=== PATIENT | male | born 1960 | race African-American/Black ===

== ENCOUNTER 2019-05-19 09:01 | Inpatient (IN) | payer MEDICARE, MEDICAID ==
[~2019-05-19] VITALS: Ht 170.2 cm; Wt 68.5 kg
[2019-05-19 09:15] VITALS: BP 144/81
--- NOTE | 2019-05-19 09:15 | NUR ---
ED Nurse Note: Patient brought in to ER from [facility] due to chest pain for 1 hour. pt reported it feels stabbing and medial chest. per pt, he has had same chest pain on and off for last 5 months but with this episode, it did not get better even after asa 325mg and nitro 0.4mg sublingual. pt aao x 2-3 and bedridden. calm and cooperative. skin dry and scarly. old fistula sites present on both upper arms. fistula on Rt upper chest currently. Rt foot has vascular wound and picture taken. pt gets dialysis Q T, Th, S but missed today due to chest pain. pt reported he staill urinates but most of time he does not due to dialysis. no pressure ulcer on posterior skin. Rt foot has 2 toes and Lt foot has 4 toes left.
[2019-05-19] MEDS ORDERED: AMMONIUM LACTATE1 ML TOPIC (09:18)
[2019-05-19] MEDS ORDERED: ELIQUIS5 MG PO (09:19)
[2019-05-19] MEDS ORDERED: ATORVASTATIN CA40 MG ORAL (09:19)
[2019-05-19] MEDS ORDERED: RENAGEL800 MG ORAL (09:23)
[2019-05-19] MEDS ORDERED: ZOLOFT100 MG ORAL (09:23)
[2019-05-19] MEDS ORDERED: TRAMADOL HCL50 MG ORAL (09:23)
[2019-05-19] MEDS ORDERED: TYLENOL EXTRA500 MG ORAL (09:24)
--- NOTE | 2019-05-19 09:24 | NUR ---
ED Nurse Note: x-ray at bedside.
[2019-05-19 09:34] LABS: EOSINOPHILS % (AUTO) 3.4 % (0.0-3.0); HEMATOCRIT 34.3 % (42.0-52.0); HEMOGLOBIN 10.5 G/DL (14.2-18.0); LYMPHOCYTES % (AUTO) 18.4 % (20.0-45.0); MEAN CORPUSCULAR VOLUME 107 FL (80-99); MONOCYTES % (AUTO) 6.6 % (1.0-10.0); NEUTROPHILS % (AUTO) 69.5 % (45.0-75.0); PLATELET COUNT 229 K/UL (150-450); RED CELL DISTRIBUTION WIDTH 17.9 % (11.6-14.8); WHITE BLOOD COUNT 5.4 K/UL (4.8-10.8)
--- NOTE | 2019-05-19 09:35 | NUR ---
ED Nurse Note: ERMD at bedside making iv access.
[2019-05-19 09:43] LABS: ANION GAP 14 mmol/L (5-15); BLOOD UREA NITROGEN 55 mg/dL (7-18); CALCIUM 9.4 MG/DL (8.5-10.1); CARBON DIOXIDE 26 MMOL/L (21-32); CHLORIDE 104 MMOL/L (98-107); CREATININE 10.2 MG/DL (0.55-1.30); POTASSIUM 4.9 MMOL/L (3.5-5.1); SODIUM 144 MMOL/L (136-145)
--- NOTE | 2019-05-19 09:44 | NUR ---
ED Nurse Note: pt asked for food and drink. per ERMD pt should stay in NPO for now.
[2019-05-19 09:57] LABS: ALANINE AMINOTRANSFERASE 21 U/L (12-78); ALBUMIN 3.3 G/DL (3.4-5.0); ALBUMIN/GLOBULIN RATIO 0.6 (1.0-2.7); ALKALINE PHOSPHATASE 101 U/L (46-116); ASPARTATE AMINO TRANSFERASE 24 U/L (15-37); BILIRUBIN,TOTAL 0.4 MG/DL (0.2-1.0); CKMB 2.7 NG/ML (0.0-3.6); CREATINE KINASE 80 U/L (26-308)
--- NOTE | 2019-05-19 09:57 | Emergency Room Report ---
History of Present Illness General Chief Complaint: Chest Pain Source: Patient, Medical Record Present Illness HPI 58-year-old male history of hypertension, history of dialysis Saturday, presents with chest pain that started 30 months prior to arrival no aggravating factors, alleviated by aspirin and nitro, severity is mild, there is a discomfort in the chest, patient received aspirin and nitro which alleviated his pain, patient states he is currently chest pain-free, he does endorse some shortness of breath patient presents for evaluation. Allergies: Coded Allergies: No Known Allergies (Unverified , 05/19/19) Patient History Past Medical History: see triage record Reviewed Nursing Documentation: PMH: Agreed; PSxH: Agreed Nursing Documentation-PMH Past Medical History: No History, Except For Hx Diabetes: Yes Hx Dialysis: Yes - ESRD History Of Psychiatric Problem: Yes - Major depression Hx Neurological Problems: Yes - Zoster meningitis, toxic encephalopathy Review of Systems All Other Systems: negative except mentioned in HPI Physical Exam Vital Signs Date Time Temp Pulse Resp B/P (MAP) Pulse Ox O2 Delivery O2 Flow Rate FiO2 05/19/19 09:07 98.2 72 16 105/60 (75) 99 Room Air Sp02 EP Interpretation: reviewed, normal General Appearance: well appearing, no apparent distress, alert Head: normocephalic, atraumatic Eyes: bilateral eye PERRL, bilateral eye EOMI ENT: uvula midline, moist mucus membranes Neck: supple, thyroid normal, supple/symm/no masses Respiratory: lungs clear, no respiratory distress, no retraction, no accessory muscle use Cardiovascular #1: normal peripheral pulses, regular rate, rhythm, no edema, no gallop, no murmur Gastrointestinal: non tender, soft, no guarding, no rebound Musculoskeletal: normal inspection Neurologic: alert, oriented x3 Psychiatric: mood/affect normal Skin: no rash, warm/dry Medical Decision Making Diagnostic Impression: Primary Impression: Chest pain Qualified Codes: R07.9 - Chest pain, unspecified Additional Impression: Missed dialysis ER Course 58-year-old male presents with atypical chest pain, constant, differential diagnosis includes ACS, pneumonia, GERD Patient with 2 troponins negative, EKG no acute changes We will admit patient for dialysis and chest pain evaluation, patient already received aspirin, nitro Patient will be admitted to Dr. Thomas, to be seen by Dr. Rodriguez Laboratory Tests Test 05/19/19 09:15 05/19/19 12:20 White Blood Count 5.4 K/UL (4.8-10.8) Red Blood Count 3.20 M/UL (4.70-6.10) L Hemoglobin 10.5 G/DL (14.2-18.0) L Hematocrit 34.3 % (42.0-52.0) L Mean Corpuscular Volume 107 FL (80-99) H Mean Corpuscular Hemoglobin 32.8 PG (27.0-31.0) H Mean Corpuscular Hemoglobin Concent 30.6 G/DL (32.0-36.0) L Red Cell Distribution Width 17.9 % (11.6-14.8) H Platelet Count 229 K/UL (150-450) Mean Platelet Volume 5.3 FL (6.5-10.1) L Neutrophils (%) (Auto) 69.5 % (45.0-75.0) Lymphocytes (%) (Auto) 18.4 % (20.0-45.0) L Monocytes (%) (Auto) 6.6 % (1.0-10.0) Eosinophils (%) (Auto) 3.4 % (0.0-3.0) H Basophils (%) (Auto) 2.0 % (0.0-2.0) Prothrombin Time 10.9 SEC (9.30-11.50) Prothrombin Time INR 1.0 (0.9-1.1) PTT 25 SEC (23-33) Sodium Level 144 MMOL/L (136-145) Potassium Level 4.9 MMOL/L (3.5-5.1) Chloride Level 104 MMOL/L (98-107) Carbon Dioxide Level 26 MMOL/L (21-32) Anion Gap 14 mmol/L (5-15) Blood Urea Nitrogen 55 mg/dL (7-18) H Creatinine 10.2 MG/DL (0.55-1.30) H Estimate Glomerular Filtration Rate 5.2 mL/min (>60) Glucose Level 101 MG/DL (74-106) Calcium Level 9.4 MG/DL (8.5-10.1) Total Bilirubin 0.4 MG/DL (0.2-1.0) Aspartate Amino Transferase (AST) 24 U/L (15-37) Alanine Aminotransferase (ALT) 21 U/L (12-78) Alkaline Phosphatase 101 U/L (46-116) Total Creatine Kinase 80 U/L (26-308) Creatine Kinase MB 2.7 NG/ML (0.0-3.6) Creatine Kinase MB Relative Index 3.3 Troponin I 0.037 ng/mL (0.000-0.056) 0.003 ng/mL (0.000-0.056) Pro-B-Type Natriuretic Peptide 47671 pg/mL (0-125) H Total Protein 9.1 G/DL (6.4-8.2) H Albumin 3.3 G/DL (3.4-5.0) L Globulin 5.8 g/dL Albumin/Globulin Ratio 0.6 (1.0-2.7) L Lipase 75 U/L (73-393) EKG Diagnostic Results EKG Time: 09:07 EP Interpretation: NSR, rate 83, QTc 44, no acute ST elevations, flipped T waves V5 V6 Rhythm Strip Diag. Results Rhythm Strip Time: 09:56 EP Interpretation: yes Rate: 82 Rhythm: NSR, no PVC's, no ectopy Chest X-Ray Diagnostic Results Chest X-Ray Diagnostic Results : Chest X-Ray Ordered: Yes # of Views/Limited/Complete: 1 View Indication: Chest Pain EP Interpretation: Yes Interpretation: no consolidation, no effusion, no pneumothorax, no acute cardiopulmonary disease Impression: No acute disease Electronically Signed by: Brian Caldwell MD Last Vital Signs Date Time Temp Pulse Resp B/P (MAP) Pulse Ox O2 Delivery O2 Flow Rate FiO2 05/19/19 09:15 72 16 Room Air 05/19/19 09:15 98.2 144/81 99 Disposition: ADMITTED INPATIENT Condition: Stable Referrals: [facility] (PCP) Brian Caldwell MD May 19, 2019 09:57
[2019-05-19] MEDS ORDERED: Lidocaine 1% Plain 30 ml INJ ONE (10:00)
--- NOTE | 2019-05-19 10:19 | Diagnostic Imaging Report ---
Indication: Chest Technique: One view of the chest Comparison: none Findings: There is a right jugular tunneled dialysis catheter in place. Stents are seen in the bilateral axillary veins and in the left subclavian vein. The lungs and pleural spaces are clear. The heart size is upper limits of normal. Impression: No acute process. Findings as noted
--- NOTE | 2019-05-19 10:23 | NUR ---
ED Nurse Note: pt c/o "feeling of sugar getting low" accu check 83mg/dl and ERMD made aware. per ERMD juice is ok for the pt to drink. 2 cups of juice provided.
--- NOTE | 2019-05-19 10:30 | NUR ---
ED Nurse Note: pt not eligible for PICC line due to multiple scar tissue and vein unable to visualize
--- NOTE | 2019-05-19 12:47 | NUR ---
ED Nurse Note: waiting for admitting doctor to call back.
--- NOTE | 2019-05-19 13:24 | NUR ---
ED Nurse Note: Report given to BRYAN Leary
--- NOTE | 2019-05-19 13:35 | NUR ---
ED Nurse Note: Dr. Rodriguez at bedside requesting to see pt while pt is in ER.
[2019-05-19 14:00] VITALS: BP 153/118
--- NOTE | 2019-05-19 14:00 | NUR ---
ED Nurse Note: pt transferred to Tememetry unit with 1 systems protection technician and 1 RN in stable condition.
--- NOTE | 2019-05-19 14:01 | NUR ---
NURSE NOTES: Received patient from BRYAN Foreman. Patient blood pressure 153/118, HR 83, SpO2 97% on room air, HR 83 in normal sinus rhythm, and temp 97.7. Patient alert to name and purpose but confused to place and time. Patient legally blind with cataract noted in right eye. Patient pupils equal and reactive but sluggish. Patient drowsy. Patient on room air. All lung sounds clear. Patient has right forearm 18 gauge peripheral IV saline locked, asymptomatic, and flushed at this time. Patient has scaly are on his upper back and is complaining of shooting pain off and on in that area. No open wound noted. Patient has bilateral upper arm old nonfunctional AV shunt. Patient has right subclavian permicath with non-sterile dressing. Will change dressing when possible. Patient has bilateral heel DTI. Patient has 3 toes amputated from left foot and one toe amputated from right foot. Right plantar foot old/dry wound. All wounds covered with optifoam. Patient bed in low position with bed alarm on and call light in reach at this time. Patient anuric at this time. Addendum: 05/19/19 at 1947 by Vane Headley RN Patient has dental implants.
[2019-05-19] MEDS ORDERED: NORVASC10 MG ORAL (15:23)
[2019-05-19] MEDS ORDERED: SENNA8.6 M2 PO (15:23)
[2019-05-19] MEDS ORDERED: HYDROCORTISONE1.5 GM TP (15:23)
[2019-05-19] MEDS ORDERED: FAMOTIDINE10 MG ORAL (15:23)
[2019-05-19] MEDS ORDERED: FERROUS SULFAT325 MG ORAL (15:23)
[2019-05-19] MEDS ORDERED: INSULIN LI100 UNIT/2 SQ (15:23)
[2019-05-19] MEDS ORDERED: LATANOPROST 0.7.5 ML OP (15:23)
[2019-05-19] MEDS ORDERED: CITRATE OF MAG296 ML PO (15:23)
[2019-05-19] MEDS ORDERED: LACTULOSE20 GM/301 ORAL (15:23)
[2019-05-19] MEDS ORDERED: SEVELAMER HCL800 MG PO (15:23)
[2019-05-19] MEDS ORDERED: ACETAMINOPHEN650 MG ORAL (15:23)
[2019-05-19] MEDS ORDERED: CLONIDINE HCL0.1 MG PO (15:23)
[2019-05-19 16:00] VITALS: BP_SYST 162; BP_SYST 99; BP_DIAS 118; BP_DIAS 99
[2019-05-19] MEDS ORDERED: HYDROcodone/Acetamin 5/325 tab ORAL PRN (16:00)
--- NOTE | 2019-05-19 16:00 | NUR ---
NURSE NOTES: Patient blood pressure 162/99, HR 84, SpO2 97% on room air, HR 84 in normal sinus rhythm, and temp 97.7. Patient remains alert to name and purpose but confused to place and time. Patient remains drowsy. Patient remains on room air. All lung sounds clear. Right forearm 18 gauge peripheral IV saline locked, asymptomatic, and flushed at this time. All wounds covered with optifoam. Patient bed in low position with bed alarm on and call light in reach at this time. Patient anuric at this time. Patient repositioned and oral care performed. Wound care nurse assessed patient. Addendum: 05/19/19 at 1935 by Vane Headley RN Admission orders obtained from Dr Rodriguez. Orders read back, verified, and placed.
[2019-05-19] MEDS ORDERED: LANTUS SOL100 UNIT/1 SUBQ ×2 (16:08)
[2019-05-19] MEDS ORDERED: HUMALOG100 UNIT/3 SUBQ (16:08)
[2019-05-19] MEDS ORDERED: BETADINE30 ML OP (16:09)
[2019-05-19] MEDS ORDERED: COLACE100 MG ORAL (16:13)
[2019-05-19] MEDS ORDERED: traMADol 50mg tab ORAL PRN (16:30)
[2019-05-19] MEDS ORDERED: Magnesium Citrate Liq Btl ORAL PRN (16:30)
[2019-05-19] MEDS ORDERED: Sennosides 8.6mg tab ORAL PRN (16:30)
[2019-05-19] MEDS ORDERED: Lactulose 20gm/30ml UDC ORAL PRN (16:30)
[2019-05-19] MEDS ORDERED: Dextrose 50% 25ml Syringe IV PRN (17:00)
[2019-05-19] MEDS: Eliquis 5mg tablet ORAL SCH (17:46)
[2019-05-19] MEDS ORDERED: Docusate 100mg cap ORAL SCH (18:00)
--- NOTE | 2019-05-19 19:10 | NUR ---
HAND-OFF: Report given to BRYAN Orlando. Patient vital signs stable with no sign of acute distress.
--- NOTE | 2019-05-19 19:40 | NUR ---
NURSE NOTES: Received report from BRYAN Cifuentes. Received PT is sleeping on the bed and drowsy and able to response to verbal stimuli. On Tele monitor with SR. Denied pain at this time. IV site intact and no sign of infiltration. Pt has old shunt on both arms but no bruit and thrills noted. Dressing is clean and dry on wound area. Noted multiple scabs on back area. New order received for hemodialysis. Called to [facility] hemodialysis center for schedule. Pt has Rt. subclavian Perma cath. Placed fall precaution. Will continue to care plan.
[2019-05-19 20:00] VITALS: BP 180/110
[2019-05-19] MEDS ORDERED: Dyna-Hex 2% Top Sol 2oz TOPIC SCH (20:00)
[2019-05-19] MEDS: Dyna-Hex 2% Top Sol 2oz TOPIC SCH (20:03)
[2019-05-19] MEDS: Latanoprost 0.005% Opth 2.5ml Soln BOTH EYES SCH (20:53)
[2019-05-19] MEDS: Atorvastatin 20mg tab ORAL SCH (20:53)
[2019-05-19] MEDS: Levemir Flexpen SUBQ SCH (20:54)
[2019-05-19] MEDS: [UNRECOGNIZED DRUG - OTHER] SUBQ SCH (21:00)
[2019-05-19] MEDS: INSULIN ASPART SUBQ SCH (21:00)
[2019-05-19] MEDS ORDERED: Heparin 5000 units/ml inj SUBQ SCH (21:00)
--- NOTE | 2019-05-19 21:45 | History and Physical Report ---
DATE OF ADMISSION: 05/19/2019 CHIEF COMPLAINT AND REASON FOR HOSPITALIZATION: The patient is a 58-year-old man admitted for chest pain. HISTORY OF PRESENT ILLNESS: The patient has end-stage renal disease, long-standing diabetes, diabetic retinopathy, and prior herpes zoster several months ago on the left side of his chest and he presented now with chest pain to the emergency room. He tells me this is his herpes zoster and his pain is moderately severe. He was seen by the emergency room physician, who felt that he should be admitted for possible acute coronary syndrome in view of his risk factors. The patient has a history of hypertension, diabetes, bed ridden status, gait disorder, amputations of toes, and impaired vision due to diabetic retinopathy. He missed his outpatient dialysis treatment on the day of admission 05/19/2019. ALLERGIES: None known. SURGERIES: Include dialysis access surgery in both arms, current access is dialysis PermCath, right chest, eye surgery for retinal detachment and glaucoma, and amputations of toes on both feet. MEDICATIONS: At the facility include A and D ointment p.r.n., ammonium lactate ointment, apixaban 5 mg b.i.d. for atrial fibrillation, atorvastatin 40 mg daily, clonidine 0.1 mg every 6 hours p.r.n., Colace 100 mg b.i.d., famotidine 10 mg daily, ferrous sulfate 325 daily, hydrocortisone lotion daily, insulin glargine 16 units daily in the morning and 18 units at bedtime, lispro sliding scale, and lactulose 30 mL every 6 hours as needed. He has latanoprost eye drops, magnesium citrate p.r.n., Norvasc 10 mg daily, senna 2 tablets at bedtime, sertraline 100 mg daily, sevelamer 800 mg t.i.d., tramadol 50 mg q.6 hours as needed, and Tylenol p.r.n. There is a note that he had [place] in the past. HABITS: He is a nondrinker and nonsmoker. No use of illicit drugs. SOCIAL HISTORY: He lives in an [facility]. SYSTEM REVIEW: HEENT: He has very poor vision. His best eye is the left eye. Hearing is good. ENDOCRINE: Long-standing diabetes as above. PULMONARY: No asthma, TB, and chronic cough. CARDIAC: Chest pain as above, which is sort of a constant nature. GASTROINTESTINAL: He has had intermittent diarrhea recently. No nausea and vomiting. GENITOURINARY: He makes little urine. NEUROLOGIC: No CVA, but he has diabetic neuropathy and dysesthesias in the legs. MUSCULOSKELETAL: Generalized weakness and he is nonambulatory. PHYSICAL EXAMINATION: GENERAL: The patient is a chronically ill-appearing man seen in the emergency department. VITAL SIGNS: Temperature 98.2, pulse 72, respirations 18, and blood pressure 144/81. HEAD, EYES, EARS, NOSE, AND THROAT: He keeps his eyes closed during most of the exam. His vision is very poor. Ocular motion is intact in all directions. Oral mucosa moist. NECK: No adenopathy. CHEST: Has a right dialysis PermCath. LUNGS: Clear. HEART: Regular rhythm. No murmur. ABDOMEN: Soft without organomegaly or masses. EXTREMITIES: No edema. There is absent pedal pulses. Missing toes on both feet and has some calluses on both feet. NEUROLOGIC: He is alert and responsive. He barely opens his eyes, but ocular motion is intact in all directions. Smile is symmetric. He moves all extremities. He has generalized weakness. SKIN: There is some hyperpigmented skin on the dermatomes of the left upper chest consistent with healed zoster. He also has dry scaly skin generalized. PERTINENT LABORATORY DATA: Show potassium 4.9, BUN 55, creatinine of 10.2, and calcium 9.4. Troponin 0.037 and 0.003. BNP 29,151. White count 5.4 and hemoglobin 10.5. IMPRESSION: 1. Chest pain likely post herpetic neuropathy. 2. Concerned for possible acute coronary syndrome. 3. End-stage renal disease, status post missed dialysis. 4. Diabetes, insulin-dependent with retinopathy, neuropathy, nephropathy, and vasculopathy. 5. Failure to thrive. PLAN: The patient will rule out acute myocardial infarction. We will give him comfort measures and arrange dialysis. Дмитрий Rodriguez M.D. DR: MANUELA JOB#: [id number] CC:
[2019-05-20] VITALS: BP 160/110
[2019-05-20 04:00] VITALS: BP 157/93
[2019-05-20 05:30] LABS: BASOPHILS % (AUTO) 1.8 % (0.0-2.0); EOSINOPHILS % (AUTO) 2.9 % (0.0-3.0); HEMATOCRIT 34.7 % (42.0-52.0); HEMOGLOBIN 10.7 G/DL (14.2-18.0); LYMPHOCYTES % (AUTO) 18.3 % (20.0-45.0); MEAN CORPUSCULAR VOLUME 106 FL (80-99); MONOCYTES % (AUTO) 8.1 % (1.0-10.0); PLATELET COUNT 230 K/UL (150-450); RED BLOOD COUNT 3.27 M/UL (4.70-6.10); RED CELL DISTRIBUTION WIDTH 17.8 % (11.6-14.8); WHITE BLOOD COUNT 5.6 K/UL (4.8-10.8)
[2019-05-20] MEDS: [UNRECOGNIZED DRUG - OTHER] SUBQ SCH ×4 (06:30→20:50)
[2019-05-20] MEDS: INSULIN ASPART SUBQ SCH ×4 (06:30→20:50)
[2019-05-20] MEDS: Levemir Flexpen SUBQ SCH ×2 (06:31→20:50)
--- NOTE | 2019-05-20 07:28 | NUR ---
HAND-OFF: Report given to BRYAN Marsh. PT is resting on the bed and no sign of acute distress noted.
--- NOTE | 2019-05-20 07:29 | NUR ---
NURSE NOTES: Received patient in bed. Awake, on room air, no apparent distress. Denies discomfort. Able to verbalize some needs. Call light within reach. Bed in lowest position, bed alarm on. Denies chest pain at this time. No signs and symptoms of hypoglycemia. Will continue plan of care.
--- NOTE | 2019-05-20 07:55 | NUR ---
NURSE NOTES: Dialysis nurse from [facility] at bedside.
[2019-05-20 08:49] LABS: ANION GAP 17 mmol/L (5-15); BLOOD UREA NITROGEN 65 mg/dL (7-18); CALCIUM 9.4 MG/DL (8.5-10.1); CARBON DIOXIDE 24 MMOL/L (21-32); CHLORIDE 104 MMOL/L (98-107); CREATININE 11.1 MG/DL (0.55-1.30); POTASSIUM 5.2 MMOL/L (3.5-5.1); SODIUM 145 MMOL/L (136-145)
[2019-05-20] MEDS ORDERED: Betadine 4oz Bottle TOPIC SCH ×2 (09:00→21:00)
[2019-05-20] MEDS: Docusate 100mg cap ORAL SCH ×2 (09:00→20:46)
[2019-05-20] MEDS: Sertraline 100mg tab ORAL SCH (09:00)
[2019-05-20] MEDS ORDERED: Lac Hydrin 12% Lotion 8oz TOPIC SCH ×2 (09:00→21:00)
[2019-05-20] MEDS: Eliquis 5mg tablet ORAL SCH ×2 (09:00→17:06)
--- NOTE | 2019-05-20 09:20 | NUR ---
*-* NO INSURANCE INFORMATION IN THE BAR UNABLE TO SEND CLINICALS OR REVIEWS *-*
[2019-05-20 12:00] VITALS: BP 119/60
--- NOTE | 2019-05-20 13:25 | NUR ---
*-* INSURANCE *-* ALL AVAILABLE CLINICALS HAVE BEEN FAXED TO: [facility] No Tracking # ot CM yet #[phone]
--- NOTE | 2019-05-20 15:28 | NUR ---
CASE MANAGEMENT:REVIEW 58 YR OLD MALE BIBA FROM [facility] PMH: DIALYSIS (LAURIE JORDAN TTS T: [phone]) CC: CHEST PAIN AND MISSED DIALYSIS SI: CHEST PAIN 98.2 72 16 105/60 99% ON RA H/H-10.5/34.3 BUN+55 CR+10.2 TROPONIN(-) IS: NTG AND ASA GIVEN TOP INSTALLER PICC LINE CHEST XRAY : TO TELEMETRY DCP: FROM [facility]
[2019-05-20 16:00] VITALS: BP 144/79
--- NOTE | 2019-05-20 16:09 | Cardiology Report ---
APPROVED REPORT EXAM: Two-dimensional and M-mode echocardiogram with Doppler and color Doppler. INDICATION Chest Pain M-Mode DIMENSIONS IVSd1.0 (0.7-1.1cm)Left Atrium (MM)2.3 (1.6-4.0cm) LVDd4.8 (3.5-5.6cm)Aortic Root3.7 (2.0-3.7cm) PWd0.9 (0.7-1.1cm)Aortic Cusp Exc.1.7 (1.5-2.0cm) IVSs1.0 cm LVDs3.4 (2.5-4.0cm) PWs1.0 cm Normal left ventricular chamber size. Global left ventricular hypokinesis . Left ventricular ejection fraction estimated to be 45-50%. No evidence left ventricular hypertrophy. No pericardial effusion. All other cardiac chamber sizes are within normal limits. Aortic valve calcification with normal cusp excursion . Mildly thickened mitral valve leaflets with normal excursion. Mild mitral annulus and aortic root calcification. Pulmonic valve not well visualized. IVC at normal size with physiologic collapse. A color flow and spectral Doppler study was performed and revealed: No aortic insufficiency . Mitral diastolic velocities suggest reduced left ventricular relaxation c/w mild LV diastolic dysfunction (Grade I ) Trace mitral regurgitation. Mild tricuspid regurgitation. Tricuspid systolic velocities suggests peak right ventricular systolic pressure of 16mmHg.
[2019-05-20] MEDS ORDERED: NORCO 5-325 TA1 EACH ORAL (17:11)
--- NOTE | 2019-05-20 17:15 | NUR ---
NURSE NOTES: Dr. Rodriguez at bedside. Informed regarding today's troponin level. With no order obtained at this time.
--- NOTE | 2019-05-20 17:47 | NUR ---
PHP ARCHITECT NOTES RECEIVED DC ORDER, INQUIRY FAXED TO [facility]. SPOKE WITH MIRANDA, PT CAN RETURN TO FACILITY PENDING AUTH FROM INSURANCE. INSURANCE TO CALL NURSING STATION WITH AUTHORIZATION AFTER HOURS. ONCE AUTHORIZATION HAS BEEN RECEIVED PT CAN DC. NURSE MADE AWARE.
--- NOTE | 2019-05-20 19:30 | NUR ---
HAND-OFF: Report given to Emily Shanks RN.
--- NOTE | 2019-05-20 19:31 | NUR ---
NURSE NOTES: received pt from Salma ADAMS., pt is resting on the bed, alert x 3. pt has both AV shunt on bilateral arm. Perma cath on right upper chest, dressing intact, clean and patent. pt states no pain at this moment. no SOB noted, and pt is in RA. O2sat is 98%. call light within reach. will continue monitor pt with plan of care. pt is getting ready to get discharge today.
[2019-05-20] MEDS ORDERED: Heparin Sod 1000 units/ml 10ml IV PRN (19:45)
[2019-05-20 20:00] VITALS: BP 110/74
[2019-05-20] MEDS: Dyna-Hex 2% Top Sol 2oz TOPIC SCH (20:44)
[2019-05-20] MEDS: Atorvastatin 20mg tab ORAL SCH (20:47)
[2019-05-20] MEDS: Latanoprost 0.005% Opth 2.5ml Soln BOTH EYES SCH (21:00)
--- NOTE | 2019-05-20 21:00 | NUR ---
NURSE NOTES: gave report to Orlando ADAMS from [facility].
[2019-05-20] MEDS: HYDROcodone/Acetamin 5/325 tab ORAL PRN (22:00)
[2019-05-21] VITALS: BP 144/69
--- NOTE | 2019-05-21 02:15 | NUR ---
NURSE NOTES: Alfa Camacho Does not want pt if SBP is higher than 160. spoke to Danni ADAMS from SNF. will continue to monitor pt's V/S.
[2019-05-21 04:00] VITALS: BP 161/59
[2019-05-21] MEDS: HYDROcodone/Acetamin 5/325 tab ORAL PRN ×2 (06:02→12:23)
[2019-05-21] MEDS: Levemir Flexpen SUBQ SCH (06:09)
[2019-05-21] MEDS: [UNRECOGNIZED DRUG - OTHER] SUBQ SCH ×2 (06:09→11:30)
[2019-05-21] MEDS: INSULIN ASPART SUBQ SCH ×2 (06:09→11:30)
--- NOTE | 2019-05-21 06:30 | NUR ---
NURSE NOTES: Dr. Thomas aware pt did not dc due to elevated BP
--- NOTE | 2019-05-21 07:22 | NUR ---
NURSE NOTES: Pt received in stable condition with no cardiopulmonary distress noted. Pt is asleep in bed on RA. Skin alterations noted. Urinal at bedside. Right chest permacath noted clamped. Bed in lowest position, alarm on, side rails up x2, call light within reach. Will continue to monitor.
--- NOTE | 2019-05-21 07:22 | NUR ---
HAND-OFF: Report given to Trupti ADAMS. pt is stable condition.
[2019-05-21 08:00] VITALS: BP 159/76
[2019-05-21] MEDS: Sertraline 100mg tab ORAL SCH (08:29)
[2019-05-21] MEDS: Eliquis 5mg tablet ORAL SCH (08:29)
[2019-05-21] MEDS: Docusate 100mg cap ORAL SCH (08:29)
--- NOTE | 2019-05-21 09:39 | NUR ---
CASE MANAGEMENT:REVIEW 05/21/19 SI: CHEST PAIN. POSSIBLE ACS ESRD. DM. FTT 97.8 76 20 159/76 99% ON RA NO LABS FOR TODAY IS: NORVASC PO QD IRON PO QD ZOLOFT PO QD PEPCID PO QD LEVEMIR SQ QAM AND QHS SS INSULIN SQ AC+HS ELIQUIS PO BID CLONIDINE PO Q6HRS PRN : STEP DOWN UNIT DCP: FROM [facility] PLAN: PLAN WAS TO DISCHARGE BACK TO [facility] LAST NIGHT AMBULANCE WAS CALLED AND WHEN THEY ARRIVED BP WAS 183/97 SO THEY WOULD NOT TRANSPORT... NOTIFIED BP HAS IMPROVED MESSAGE LEFT FOR [facility] YULIYAM: LELAND T: [phone]
--- NOTE | 2019-05-21 09:50 | NUR ---
DISCHARGE PLANNING DISCHARGE ORDER NOTED CALLED AND LEFT M MESSAGE FOR [facility] YULIYA: LELAND T: [phone] LELAND WILL ARRANGE AMBULANCE TRANSPORT WITH "[facility]" WAITING FOR RETURN CALL FROM LELAND REGARDING AMBULANCE ETA DISCUSSED WITH CHARGE NURSE ZACHARY
[2019-05-21 12:00] VITALS: BP 126/48
--- NOTE | 2019-05-21 12:01 | NUR ---
NURSE NOTES: Gave report to Gifty Cabrera from [facility] over phone.
--- NOTE | 2019-05-21 12:26 | NUR ---
NURSE NOTES: Pt refused insulin. I informed him that his blood glucose was 236 at this time and indication for insulin, he still refused it however.
--- NOTE | 2019-05-21 13:07 | NUR ---
*-* INSURANCE *-* ALL AVAILABLE CLINICALS HAVE BEEN FAXED TO: [facility] No Tracking # ot CM yet #[phone]
--- NOTE | 2019-05-21 14:31 | Nephrology Progress Note ---
Assessment/Plan Problem List: (1) Troponin level elevated (2) End-stage renal disease (3) Post herpetic neuralgia (4) Chest pain (5) Missed dialysis Plan ecf declined 05/20 but accepts 05/21 stable on HD 05/21, I saw him both days Subjective Constitutional: Reports: no symptoms HEENT: Reports: blurred vision Genitourinary: Reports: incontinence Neurologic/Psychiatric: Reports: no symptoms, pre-existing deficit Objective Objective Last 24 Hour Vital Signs Date Time Temp Pulse Resp B/P (MAP) Pulse Ox O2 Delivery O2 Flow Rate FiO2 05/21/19 12:00 83 05/21/19 12:00 Room Air 05/21/19 12:00 97.5 84 12 126/48 (74) 97 05/21/19 08:29 83 159/76 05/21/19 08:00 98.9 83 20 159/76 (103) 99 05/21/19 08:00 Room Air 05/21/19 07:35 73 05/21/19 04:00 97.8 76 20 161/59 (93) 99 05/21/19 03:34 81 05/21/19 00:00 98.4 80 20 144/69 (94) 100 05/20/19 23:27 76 05/20/19 21:51 183/97 05/20/19 21:00 Room Air 05/20/19 20:00 98.3 83 20 110/74 (86) 98 05/20/19 19:39 82 05/20/19 16:00 99.5 83 20 144/79 (100) 99 05/20/19 15:31 78 Intake and Output 05/20/19 05/21/19 18:59 06:59 Intake Total 240 ml 120 ml Output Total 2120 ml 120 ml Balance -1880 ml 0 ml Intake Oral 240 ml 120 ml Output Urine Total 120 ml 120 ml Hemodialysis UF 2000 ml # Bowel Movements 1 Height (Feet): 5 Height (Inches): 7.00 Weight (Pounds): 151 General Appearance: no apparent distress, alert - Neck: normal alignment Cardiovascular: regular rhythm Respiratory/Chest: lungs clear Abdomen: non tender, soft Neurologic: abnormal activity therapist II-XII, motor weakness Дмитрий Rodriguez MD May 21, 2019 14:31
--- NOTE | 2019-05-21 14:45 | NUR ---
NURSE NOTES: Pt discharged in stable condition via EMT personnel. quality assurance monitor body removed and returned to tele unit. Pt has no belongings. Family informed of discharge over phone.
--- NOTE | 2019-05-22 11:54 | Discharge Summary ---
DATE OF ADMISSION: 05/19/2019 DATE OF DISCHARGE: 05/20/2019 PERTINENT HISTORY: The patient presents to the emergency room for chest pain. He has had herpes zoster and he told me that this is similar to his herpes zoster pain although the acute episode was several months ago. He has diabetes, diabetic retinopathy, vasculopathy, hypertension, and end-stage renal disease, on dialysis. PERTINENT PHYSICAL FINDINGS: See the detailed History and Physical. HEENT: He has poor vision. LUNGS: Clear. HEART: Regular rhythm. No murmur or rub. ABDOMEN: Soft without organomegaly. EXTREMITIES: No edema. He is missing toes on both feet. NEUROLOGIC: He is alert, somewhat sleepy. No focal findings. SKIN: He has hyper pigmented skin in the dermatome on the left upper chest. COURSE IN THE HOSPITAL: Because of his risk factors, he is admitted for possible acute coronary syndrome. His chest pain abated and no specific therapy. He did receive maintenance dialysis in the hospital as he had missed dialysis. His troponins are 0.037, 0.003, and 0.062, were likely nonspecific due to his end-stage renal disease. There were no acute EKG changes. He was discharged from the hospital in stable condition. Echocardiogram . Ejection fraction 45 to 50%. Global left ventricular hypokinesis and diastolic dysfunction. FINAL DIAGNOSES: 1. Chest pain likely due to post herpetic neuralgia. 2. End-stage renal disease, status post missed dialysis. 3. Chronic diastolic congestive heart failure, with abnormal echo as above and likely chronic ischemic cardiomyopathy. 4. Elevation of troponin of uncertain consequence likely due to end-stage renal disease and underlying ischemic cardiomyopathy. 5. Insulin-dependent diabetes with retinopathy, nephropathy, neuropathy, and vasculopathy. DISCHARGE DISPOSITION: To the [facility] on his renal diabetic diet. MEDICATIONS: Per the discharge medication list. FOLLOWUP: Follow up by his primary doctor at the [facility]. Дмитрий Rodriguez M.D. DR: MANUELA JOB#: [id number] CC:
--- NOTE | 2019-05-22 15:44 | NUR ---
*-* INSURANCE *-* DISCHARGE SUMMARY HAVE BEEN FAXED TO: [facility] No Tracking # ot CM yet #[phone]
== END 2019-05-21 14:50 | DRG 73 ==
LOC: EDBD 09:01 → EMR 09:45 → 2W 10:54 → EDBEDREQ 13:05
DX: B02.23 Postherpetic polyneuropathy (principal); N18.6 End stage renal disease; I13.2 Hypertensive heart and chronic kidney disease with heart failure and with stage 5 chronic kidney disease, or end stage renal disease; I50.32 Chronic diastolic (congestive) heart failure; E11.22 Type 2 diabetes mellitus with diabetic chronic kidney disease; Z79.4 Long term (current) use of insulin; R62.7 Adult failure to thrive; E11.319 Type 2 diabetes mellitus with unspecified diabetic retinopathy without macular edema; Z99.2 Dependence on renal dialysis; I25.5 Ischemic cardiomyopathy; E11.40 Type 2 diabetes mellitus with diabetic neuropathy, unspecified; Z91.15 Patient's noncompliance with renal dialysis
CPT/HCPCS: 36415; 36569; 71045; 76937; 80048; 80053; 82550; 82553; 82962; 83690; 83880; 84484; 85025; 85610; 85730; 87081; 93005; 93306; 99285; A4246; J1815; S5561

== ENCOUNTER 2019-05-21 16:53 | Emergency (ER) | payer MEDICARE, MEDICAID ==
[~2019-05-21] VITALS: Ht 185.4 cm; Wt 79.8 kg
[~2019-05-21 16:53] MED LIST: ACETAMINOPHEN650 MG ORAL; AMMONIUM LACTATE1 ML TOPIC; ATORVASTATIN CA40 MG ORAL; BETADINE30 ML OP; CITRATE OF MAG296 ML PO; CLONIDINE HCL0.1 MG PO; COLACE100 MG ORAL; ELIQUIS5 MG PO; FAMOTIDINE10 MG ORAL; FERROUS SULFAT325 MG ORAL; HUMALOG100 UNIT/3 SUBQ; HYDROCORTISONE1.5 GM TP; INSULIN LI100 UNIT/2 SQ; LACTULOSE20 GM/301 ORAL; LANTUS SOL100 UNIT/1 SUBQ; LATANOPROST 0.7.5 ML OP; NORCO 5-325 TA1 EACH ORAL; NORVASC10 MG ORAL; RENAGEL800 MG ORAL; SENNA8.6 M2 PO; SEVELAMER HCL800 MG PO; TRAMADOL HCL50 MG ORAL; TYLENOL EXTRA500 MG ORAL; ZOLOFT100 MG ORAL
[2019-05-21 17:00] VITALS: BP 134/74
--- NOTE | 2019-05-21 17:00 | NUR ---
ED Nurse Note: Patient brought in by ambulance after being discharged from this hospital due to patient being hypertensive at time of arrival to [facility]. EMs states that the patient's systolic blood pressure was in the 180s. at time of arrival patients blood pressure was 134/74. patient did receive dialysis today, has a shunt located on right upper chest. patient is alert and oriented x4, placed on a monitoring and evaluation advisor, will continue to monitor
--- NOTE | 2019-05-21 17:08 | Emergency Room Report ---
History of Present Illness General Chief Complaint: Hypertension Source: Medical Record Present Illness HPI Disclaimer: Please note that this report is being documented using Verican technology. This can lead to erroneous entry secondary to incorrect interpretation by the dictating instrument. HPI: 58-year-old male with history of ESRD who was discharged from the hospital earlier this morning presents for evaluation of elevated blood pressures. The patient had hemodialysis earlier today and was discharged approximately noon. He was taken to his convalescent home though on vitals assessments he was found to have elevated blood pressures with systolics in the 180s. The patient was asymptomatic however he was refused by the nursing facility. He arrives without complaints. His blood pressure is now in the 160s. Recent labs were unremarkable and the patient had a full course of hemodialysis today. 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 EOMI. Neck: Supple, trachea midline Chest Wall: No tenderness, no deformity. Dialysis catheter in right upper chest Cardiovascular: RRR. S1 and S2 normal. Faint systolic ejection murmur best heard at this left sternal border Resp: Normal work of breathing. No cough, wheezing or crackles appreciated Abdomen: Abdomen is soft, nondistended. Nontender Skin: Intact. No abrasions, laceration or rash over the exposed skin. Extensive scarring over the left arm MSK: Normal tone and bulk. Moving all extremities. No obvious deformity. No lower extremity edema. The right ankle is bandaged Neuro: Awake and alert. Mentating appropriately. Medical Decision Making Diagnostic Impression: Primary Impression: Hypertension ER Course 58-year-old male discharged from the hospital today after receiving hemodialysis presents for elevated blood pressures. Blood pressures are already improved over the reported 180s at his nursing facility. We will give a dose of clonidine and monitor in the emergency department. If his blood pressure improved he may be returned to his nursing facility for outpatient follow-up. Patient has no complaints. Do not see indication for emergent labs or imaging at this time. He is in stable condition. Reevaluation Time: 17:33 Last Vital Signs Date Time Temp Pulse Resp B/P (MAP) Pulse Ox O2 Delivery O2 Flow Rate FiO2 05/21/19 16:56 98.4 88 18 160/68 (98) 99 Nasal Cannula 1.0 Status: improved Reevaluation Impression Prior to receiving the clonidine the patient's blood pressure improved with systolics in the 130s. I was able to contact and discussed with his PMD recommended sending back to his facility. We will manage him there as an outpatient. Patient is stable and appropriate for discharge with outpatient follow-up. Disposition: [facility] SN[facility] Condition: Improved Vasu Sampson MD May 21, 2019 17:08
[2019-05-21 17:30] VITALS: BP 161/68
--- NOTE | 2019-05-21 17:30 | NUR ---
ED Nurse Note: Patients blood pressure is 161/78. Clonidine given
--- NOTE | 2019-05-21 18:40 | NUR ---
ED Nurse Note: Had to override 2nd clonidine tablet due to patient dropping pill on the floor
--- NOTE | 2019-05-21 19:08 | NUR ---
HAND-OFF: Report given to BRYAN Santiago.
[2019-05-21 19:15] VITALS: BP 179/89
[2019-05-21 22:15] VITALS: BP 176/87
--- NOTE | 2019-05-21 22:37 | NUR ---
ED Nurse Note: REPORT GIVEN @ [facility] NURSE DIAGNOSTIC TECHNICIAN. Addendum: 05/21/19 at 2243 by KALLIE REPORT WAS GIVEN TO SHAYLA.
--- NOTE | 2019-05-22 00:45 | NUR ---
ED Nurse Note: Patient was transfered back to the [facility], via [employer] [facility] transportation. Patient took all belongings, AAO 4, VSS at this time, pt's BP 136/65. Patient's arm band and IV were removed without any complications.
[2019-05-22 01:23] VITALS: BP 136/65
[2019-05-22 01:26] VITALS: BP 136/65
== END 2019-05-22 01:32 ==
LOC: EDBD 16:53 → EDUNIT# 16:53 → EMR 17:15
DX: I12.0 Hypertensive chronic kidney disease with stage 5 chronic kidney disease or end stage renal disease (principal); E11.22 Type 2 diabetes mellitus with diabetic chronic kidney disease; N18.6 End stage renal disease; Z99.2 Dependence on renal dialysis; E11.40 Type 2 diabetes mellitus with diabetic neuropathy, unspecified; I73.9 Peripheral vascular disease, unspecified
CPT/HCPCS: 96374; 99284; J0360

== ENCOUNTER 2019-05-25 14:05 | Inpatient (IN) | payer MEDICARE, MEDICAID ==
[~2019-05-25] VITALS: Ht 172.7 cm; Wt 73.0 kg
--- NOTE | 2019-05-25 14:35 | Emergency Room Report ---
History of Present Illness General Chief Complaint: Abnormal Labs Source: Patient, Medical Record, EMS Present Illness HPI 58-year-old male presented with low blood sugar. He does have a history of end- stage renal disease on dialysis, his last dialysis was Saturday. ems said his blood sugar was low. [address] [facility] gave glucagon. when they arrived it was still 51. they gave glucose paste. he was awake and alert with them but apparently whie his blood sugar was low he was "shaking" no actual aseizure reportedly now he is at his baseline mental status which is aox2. pt denies any complaints Allergies: Coded Allergies: No Known Allergies (Unverified , 05/19/19) Patient History Limited by: medical condition Past Medical History: see triage record Past Surgical History: unable to obtain Pertinent Family History: none Reviewed Nursing Documentation: PMH: Agreed; PSxH: Agreed Nursing Documentation-PMH Past Medical History: No History, Except For Hx Cardiac Problems: Yes - PVD, A-fib, Anemia Hx Diabetes: Yes Hx Cancer: No Hx Gastrointestinal Problems: No Hx Dialysis: Yes - ESRD Hx Neurological Problems: Yes - Zoster meningitis, toxic encephalopathy Hx Meningitis: Yes - zoster meningitis Review of Systems All Other Systems: negative except mentioned in HPI Physical Exam Vital Signs Date Time Temp Pulse Resp B/P (MAP) Pulse Ox O2 Delivery O2 Flow Rate FiO2 05/25/19 14:13 98.2 94 16 146/79 (101) 98 Room Air Sp02 EP Interpretation: reviewed, normal General Appearance: alert, other - Chronically ill-appearing middle-aged male, not in acute distress calm and cooperative Head: normocephalic, atraumatic Eyes: bilateral eye normal inspection, bilateral eye PERRL, bilateral eye EOMI ENT: normal ENT inspection, normal pharynx, normal voice, moist mucus membranes Neck: normal inspection, full range of motion, supple Respiratory: normal inspection, lungs clear, normal breath sounds, no respiratory distress, speaking full sentences, chest symmetrical Cardiovascular #1: normal inspection, regular rate, rhythm, normal capillary refill Cardiovascular #2: 2+ radial (R), 2+ radial (L) Gastrointestinal: normal inspection, non tender, soft, non-distended, no guarding Musculoskeletal: normal inspection, back normal, normal range of motion, non- tender Neurologic: alert, responsive, motor strength/tone normal, sensory intact, speech normal Psychiatric: other - Short-term memory loss, dementia Medical Decision Making Diagnostic Impression: Primary Impression: Hypoglycemia Additional Impression: End-stage renal disease ER Course 58-year-old male with low blood sugar DDX: Low blood sugar Plan: Obtain labs, EKG We will continue to observe patient ER course: Patient has remained stable during ED stay. Patient has eaten a full meal here. All his repeat glucose checks have been over 90. He has been awake and alert and is at at and at his normal baseline mental status. Vital signs remained stable. I had actually spoken to Dr. Aguila regarding a possible admission, there is no admission criteria at this time as his glucose levels have all been normal he is at his baseline mental status. We actually called the half-way facility and let them know to please hold insulin for 24 hours, to monitor his glucose very closely. Disposition: Patient is to be discharged to snf via BLS. Please note that this Emergency Department Report was dictated using [employer] Devic[employer] advice technology software, occasionally this can lead to erroneous entry secondary to interpretation by the dictation equipment EKG Diagnostic Results EP Interpretation: Yes Rate: normal Rhythm: NSR ST Segments: T wave inversion noted V5 and V6. As well as 1 and aVL ASA given to patient: No Rhythm Strip EP Interpretation: Yes Rate: 70 Rhythm: NSR, no PVCs, no ectopy Chest X-ray CXR: Ordered: Yes 1 view Indication: Chest pain EP interpretation: Yes Interpretation: No consolidation, no effusion, no PTX, no acute cardiopulmonary disease Impression: No acute disease Electronically signed by Mihai Lawson MD Laboratory Tests Test 05/25/19 15:10 White Blood Count 6.3 K/UL (4.8-10.8) Red Blood Count 2.88 M/UL (4.70-6.10) L Hemoglobin 9.4 G/DL (14.2-18.0) L Hematocrit 29.7 % (42.0-52.0) L Mean Corpuscular Volume 103 FL (80-99) H Mean Corpuscular Hemoglobin 32.8 PG (27.0-31.0) H Mean Corpuscular Hemoglobin Concent 31.8 G/DL (32.0-36.0) L Red Cell Distribution Width 15.0 % (11.6-14.8) H Platelet Count 196 K/UL (150-450) Mean Platelet Volume 5.6 FL (6.5-10.1) L Neutrophils (%) (Auto) 84.0 % (45.0-75.0) H Lymphocytes (%) (Auto) 7.9 % (20.0-45.0) L Monocytes (%) (Auto) 6.3 % (1.0-10.0) Eosinophils (%) (Auto) 1.0 % (0.0-3.0) Basophils (%) (Auto) 0.9 % (0.0-2.0) Sodium Level 145 MMOL/L (136-145) Potassium Level 4.8 MMOL/L (3.5-5.1) Chloride Level 105 MMOL/L (98-107) Carbon Dioxide Level 26 MMOL/L (21-32) Anion Gap 14 mmol/L (5-15) Blood Urea Nitrogen 54 mg/dL (7-18) H Creatinine 8.2 MG/DL (0.55-1.30) H Estimate Glomerular Filtration Rate 8.1 mL/min (>60) Glucose Level 66 MG/DL (74-106) L Calcium Level 8.8 MG/DL (8.5-10.1) Total Bilirubin 0.4 MG/DL (0.2-1.0) Aspartate Amino Transferase (AST) 25 U/L (15-37) Alanine Aminotransferase (ALT) 34 U/L (12-78) Alkaline Phosphatase 89 U/L (46-116) Troponin I 0.052 ng/mL (0.000-0.056) Total Protein 8.2 G/DL (6.4-8.2) Albumin 3.1 G/DL (3.4-5.0) L Globulin 5.1 g/dL Albumin/Globulin Ratio 0.6 (1.0-2.7) L Last Vital Signs Date Time Temp Pulse Resp B/P (MAP) Pulse Ox O2 Delivery O2 Flow Rate FiO2 05/25/19 14:13 98.2 94 16 146/79 (101) 98 Room Air Disposition: [facility] SNF Condition: Stable Mihai Lawson M.D. May 25, 2019 14:35
[2019-05-25 15:34] LABS: BASOPHILS % (AUTO) 0.9 % (0.0-2.0); HEMATOCRIT 29.7 % (42.0-52.0); HEMOGLOBIN 9.4 G/DL (14.2-18.0); LYMPHOCYTES % (AUTO) 7.9 % (20.0-45.0); MEAN CORPUSCULAR VOLUME 103 FL (80-99); MONOCYTES % (AUTO) 6.3 % (1.0-10.0); PLATELET COUNT 196 K/UL (150-450); RED BLOOD COUNT 2.88 M/UL (4.70-6.10); WHITE BLOOD COUNT 6.3 K/UL (4.8-10.8)
[2019-05-25 15:42] VITALS: BP 119/59
[2019-05-25 15:46] LABS: ANION GAP 14 mmol/L (5-15); BLOOD UREA NITROGEN 54 mg/dL (7-18); CALCIUM 8.8 MG/DL (8.5-10.1); CARBON DIOXIDE 26 MMOL/L (21-32); CHLORIDE 105 MMOL/L (98-107); CREATININE 8.2 MG/DL (0.55-1.30); POTASSIUM 4.8 MMOL/L (3.5-5.1); SODIUM 145 MMOL/L (136-145)
[2019-05-25 15:51] LABS: ALANINE AMINOTRANSFERASE 34 U/L (12-78); ALBUMIN 3.1 G/DL (3.4-5.0); ALBUMIN/GLOBULIN RATIO 0.6 (1.0-2.7); ALKALINE PHOSPHATASE 89 U/L (46-116); ASPARTATE AMINO TRANSFERASE 25 U/L (15-37); BILIRUBIN,TOTAL 0.4 MG/DL (0.2-1.0)
--- NOTE | 2019-05-25 16:58 | Diagnostic Imaging Report ---
Indication: Dyspnea Comparison: 05/19/2019 A single view chest radiograph was obtained. Findings: There is pleural thickening at the right lung base seen previously also. A small pleural effusion is not excluded. Right permacath noted. Right axillary and upper arm stent and left axillary stents noted. Heart is mildly enlarged. IMPRESSION: Possible small right pleural effusion and/or pleural thickening No change from the prior exam.
[2019-05-25 19:08] VITALS: BP 146/62
[2019-05-25 20:57] VITALS: BP 130/58
[2019-05-25] MEDS ORDERED: Sennosides 8.6mg tab ORAL PRN (21:45)
[2019-05-25] MEDS ORDERED: Miralax 17gm pkt ORAL PRN (21:45)
[2019-05-25] MEDS ORDERED: traMADol 50mg tab ORAL PRN (21:45)
[2019-05-25] MEDS ORDERED: Dextrose 10% 1,000 ML IV SCH (21:45)
[2019-05-25] MEDS ORDERED: Lactulose 20gm/30ml UDC ORAL PRN (21:45)
[2019-05-26] VITALS (7 sets, daily range): BP systolic 133–186; BP diastolic 77–101
[2019-05-26] MEDS: HydrALAZINE 50mg tab ORAL SCH ×4 (01:01→17:17)
[2019-05-26] MEDS ORDERED: Heparin Sod 1000 units/ml 10ml IV PRN (06:00)
[2019-05-26] MEDS ORDERED: Heparin 5000 units/ml inj SUBQ SCH (09:00)
[2019-05-26] MEDS: Sertraline 100mg tab ORAL SCH (09:50)
[2019-05-26] MEDS: Docusate 100mg cap ORAL SCH ×2 (09:50→17:17)
[2019-05-26 10:30] LABS: BASOPHILS % (AUTO) 0.6 % (0.0-2.0); EOSINOPHILS % (AUTO) 2.9 % (0.0-3.0); HEMATOCRIT 31.9 % (42.0-52.0); HEMOGLOBIN 9.8 G/DL (14.2-18.0); LYMPHOCYTES % (AUTO) 12.1 % (20.0-45.0); MEAN CORPUSCULAR VOLUME 105 FL (80-99); MONOCYTES % (AUTO) 4.9 % (1.0-10.0); NEUTROPHILS % (AUTO) 79.6 % (45.0-75.0); PLATELET COUNT 186 K/UL (150-450); RED BLOOD COUNT 3.04 M/UL (4.70-6.10); RED CELL DISTRIBUTION WIDTH 15.5 % (11.6-14.8)
[2019-05-26 10:42] LABS: ANION GAP 8 mmol/L (5-15); BLOOD UREA NITROGEN 29 mg/dL (7-18); CALCIUM 8.5 MG/DL (8.5-10.1); CARBON DIOXIDE 31 MMOL/L (21-32); CHLORIDE 102 MMOL/L (98-107); CREATININE 4.8 MG/DL (0.55-1.30); POTASSIUM 3.9 MMOL/L (3.5-5.1); SODIUM 141 MMOL/L (136-145)
--- NOTE | 2019-05-26 12:00 | History & Physical ---
History and Physical History & Physicial DATE OF ADMISSION: 05/25/2019 CHIEF COMPLAINT AND REASON FOR HOSPITALIZATION: The patient is a 58-year-old man admitted for hypoglycemia on long acting insulin (no oral DM rx) . HISTORY OF PRESENT ILLNESS: The patient has end-stage renal disease, long-standing diabetes, diabetic retinopathy (blind), and prior herpes zoster several months ago on the left side of his chest and past zoster meningitis. He was repeated hypoglycemic with tremors even after D50. He was seen by the emergency room physician, who felt that he should be admitted. PMH: The patient has a history of hypertension, diabetes, bed ridden status, gait disorder, amputations of multiple toes, and blindness due to diabetic retinopathy. ALLERGIES: None known. SURGERIES: Include dialysis access surgery in both arms, current access is dialysis PermCath, right chest, eye surgery for retinal detachment and glaucoma, and amputations of toes on both feet. MEDICATIONS: Reviewed. He is on apixiban. HABITS: He is a nondrinker and nonsmoker. No use of illicit drugs. SOCIAL HISTORY: He lives in an [facility]. SYSTEM REVIEW: HEENT: He has very poor vision. His best eye is the left eye. Hearing is good. ENDOCRINE: Long-standing diabetes as above. PULMONARY: No asthma, TB, has chronic cough. CARDIAC: Chest pain due to post herpetic neuralgia GASTROINTESTINAL: He has had intermittent diarrhea recently. No nausea and vomiting. GENITOURINARY: He makes little urine. NEUROLOGIC: No CVA, but he has diabetic neuropathy and dysesthesias in the legs. MUSCULOSKELETAL: Generalized weakness and he is nonambulatory. PHYSICAL EXAMINATION: GENERAL: The patient is a chronically ill-appearing man, alert VITAL SIGNS: stable. HEAD, EYES, EARS, NOSE, AND THROAT: His vision is very poor. Ocular motion is intact in all directions. Oral mucosa moist. NECK: No adenopathy. CHEST: Has a right dialysis PermCath. LUNGS: Clear. HEART: Regular rhythm. No murmur. ABDOMEN: Soft without organomegaly or masses. EXTREMITIES: No edema. There is absent pedal pulses. Missing toes on both feet and has some calluses on both feet. NEUROLOGIC: He is alert and responsive. Smile is symmetric. He moves all extremities. He has generalized weakness. SKIN: There is some hyperpigmented skin on the dermatomes of the left upper chest and back consistent with healed zoster. He also has dry scaly skin generalized. PERTINENT LABORATORY DATA: reviewed IMPRESSION: 1. Hypoglycemia due to insulin excess 2. Chest pain due to post herpetic neuralgia. 3. End-stage renal disease, status post missed dialysis. 4. Diabetes, insulin-dependent with retinopathy, neuropathy, nephropathy, and vasculopathy. 5. Failure to thrive. PLAN: hold insulin, we will dc D50 given overnight as BS now 144. If BS stable and eating well plan dc tomorrow. Jefe Thomas MD May 26, 2019 12:00
--- NOTE | 2019-05-26 16:46 | Cardiology Report ---
APPROVED REPORT EKG Measurement Heart [id number] Normal sinus rhythm Left ventricular hypertrophy with repolarization abnormality Prolonged QT Abnormal ECG
[2019-05-26] MEDS: Eliquis 2.5mg tablet ORAL SCH (17:17)
[2019-05-26] MEDS: NovoLOG Insulin Flexpen SUBQ SCH ×3 (17:48→20:54)
--- NOTE | 2019-05-26 19:45 | Consultation ---
DATE OF CONSULTATION: 05/26/2019 NEPHROLOGY CONSULTATION CONSULTING PHYSICIAN: Дмитрий Rodriguez M.D. REFERRING PHYSICIAN: Jefe Thomas M.D. REASON FOR CONSULTATION: End-stage renal disease and hypoglycemia. HISTORY OF PRESENT ILLNESS: The patient receives dialysis under another provider. He presented to the emergency room with lethargy and hypoglycemia and in view of his insulin-dependent status, no improvement shortly. He was admitted for monitoring of his glucose. He also missed his dialysis appointment for 05/26/2019. PAST MEDICAL HISTORY: The patient has history of CVA, insulin-dependent diabetes, hypertension, end-stage renal disease, and peripheral vascular disease. SURGERIES: Include dialysis access surgery in both arms, dialysis PermCath in right chest, eye surgery for retinal detachment and glaucoma, and amputations of toes of both feet. MEDICATIONS: Reviewed on the computer and not reiterated. SYSTEM REVIEW: HEAD, EYES, EARS, NOSE, THROAT: He is legally blind. He has a history of diabetic retinopathy. LUNGS: No asthma or TB. CARDIAC: History of hypertensive heart disease and diastolic CHF. GASTROINTESTINAL: Intermittent constipation. No nausea, vomiting, hematochezia, or melena. GENITOURINARY: Makes a little urine. NEUROLOGIC: He has diabetic neuropathy and dysesthesias of the legs. MUSCULOSKELETAL: Generalized weakness. PHYSICAL EXAMINATION: GENERAL: The patient is lying in bed, in no acute distress. VITAL SIGNS: Reviewed on the chart. HEENT: There is some mild periorbital edema. Vision is poor. NECK: No adenopathy. LUNGS: Clear. HEART: Regular rhythm. I hear no murmur. ABDOMEN: Soft without organomegaly or masses. EXTREMITIES: No edema. There is muscle atrophy. He has amputations of the first three toes on the right and second toe on the left foot. NEUROLOGIC: He is alert and responsive. Cranial nerves are intact. He has generalized weakness. LABORATORY DATA: Pertinent labs show white count of 6000 and hemoglobin 9.8. Sodium 141, potassium 3.9, BUN 29, creatinine 4.8, and glucose was 66 yesterday and 142 today. IMPRESSION: 1. End-stage renal disease. 2. Hypoglycemia in a patient on insulin. 3. History of retinopathy and blindness. 4. Hypertensive heart disease. PLAN: Dialysis is initiated for maintenance and fluid removal. His insulin long-acting was stopped. For right now, sliding-scale insulin. His dextrose infusion was stopped and he is eating now, so hopefully we can discharge him back to the senior care facility soon. Дмитрий Rodriguez M.D. DR: LAN JOB#: [id number] CC:
[2019-05-26] MEDS ORDERED: NovoLOG Insulin Flexpen SUBQ SCH (21:00)
[2019-05-26] MEDS ORDERED: Atorvastatin 80mg tab ORAL SCH (21:00)
[2019-05-27] MEDS: HydrALAZINE 50mg tab ORAL SCH ×4 (00:21→17:12)
[2019-05-27 04:00] VITALS: BP 147/78
[2019-05-27] MEDS: NovoLOG Insulin Flexpen SUBQ SCH ×3 (06:16→16:30)
[2019-05-27 08:11] VITALS: BP 146/80
[2019-05-27] MEDS: Eliquis 2.5mg tablet ORAL SCH ×2 (09:00→17:12)
[2019-05-27] MEDS: Sertraline 100mg tab ORAL SCH (09:00)
[2019-05-27] MEDS ORDERED: LIDODERM700 M1 TOPIC (09:33)
[2019-05-27] MEDS: Docusate 100mg cap ORAL SCH ×2 (09:49→17:11)
[2019-05-27] MEDS ORDERED: APRESOLINE100 MG ORAL (11:52)
[2019-05-27] MEDS ORDERED: NOVOLOG100 UNIT/4 SQ (11:53)
[2019-05-27 12:02] VITALS: BP 149/90
[2019-05-27] MEDS: HYDROcodone/Acetamin 5/325 tab ORAL PRN ×2 (12:10→17:56)
--- NOTE | 2019-05-27 12:21 | General Progress Note ---
Assessment/Plan Assessment/Plan: 1. Hypoglycemia due to insulin excess 2. Chest pain due to post herpetic neuralgia. 3. End-stage renal disease, status post missed dialysis. 4. Diabetes, insulin-dependent with retinopathy, neuropathy, nephropathy, and vasculopathy. 5. Failure to thrive. no hypoglycemia dc to snf on sliding scale only may add Lantus in small dose later at snf Subjective Constitutional: Reports: no symptoms Cardiovascular: Reports: chest pain Allergies: Coded Allergies: No Known Allergies (Unverified , 05/19/19) Objective Last 24 Hour Vital Signs Date Time Temp Pulse Resp B/P (MAP) Pulse Ox O2 Delivery O2 Flow Rate FiO2 05/27/19 12:10 149/90 05/27/19 12:02 98.2 89 14 149/90 (109) 96 05/27/19 09:48 83 131/67 05/27/19 08:49 Room Air 05/27/19 08:12 Room Air 05/27/19 08:11 97.5 94 19 146/80 (102) 96 05/27/19 06:14 147/78 05/27/19 04:00 98.3 91 18 147/78 (101) 95 05/27/19 00:21 157/90 05/26/19 23:23 98.4 90 18 157/90 (112) 94 05/26/19 20:31 Room Air 05/26/19 20:00 98.6 98 17 133/80 (97) 96 05/26/19 18:24 98.2 05/26/19 17:17 134/82 05/26/19 17:16 97 134/82 (99) 05/26/19 16:00 98.2 95 20 150/87 (108) 97 05/26/19 12:52 156/77 Intake and Output 05/26/19 05/27/19 18:59 06:59 Intake Total 360 ml Balance 360 ml Intake Oral 360 ml Height (Feet): 5 Height (Inches): 8.00 Weight (Pounds): 161 General Appearance: no apparent distress eJfe Thomas MD May 27, 2019 12:21
[2019-05-27 16:00] VITALS: BP 139/61
[2019-05-27 17:12] VITALS: BP 139/61
--- NOTE | 2019-05-27 17:52 | Nephrology Progress Note ---
Assessment/Plan Problem List: (1) End-stage renal disease (2) Hypoglycemia (3) Post herpetic neuralgia (4) Troponin level elevated Plan stable exam glu above 200 can adjust insulin at ecf Subjective Constitutional: Reports: weakness HEENT: Reports: other - blind Genitourinary: Reports: no symptoms Neurologic/Psychiatric: Reports: pre-existing deficit Objective Objective Last 24 Hour Vital Signs Date Time Temp Pulse Resp B/P (MAP) Pulse Ox O2 Delivery O2 Flow Rate FiO2 05/27/19 17:12 139/61 05/27/19 16:00 98.7 90 18 139/61 (87) 96 05/27/19 12:10 149/90 05/27/19 12:02 98.2 89 14 149/90 (109) 96 05/27/19 09:48 83 131/67 05/27/19 08:49 Room Air 05/27/19 08:12 Room Air 05/27/19 08:11 97.5 94 19 146/80 (102) 96 05/27/19 06:14 147/78 05/27/19 04:00 98.3 91 18 147/78 (101) 95 05/27/19 00:21 157/90 05/26/19 23:23 98.4 90 18 157/90 (112) 94 05/26/19 20:31 Room Air 05/26/19 20:00 98.6 98 17 133/80 (97) 96 05/26/19 18:24 98.2 Intake and Output 05/26/19 05/27/19 19:00 07:00 Intake Total 360 ml Balance 360 ml Intake Oral 360 ml Height (Feet): 5 Height (Inches): 8.00 Weight (Pounds): 161 General Appearance: no apparent distress, other - periorbital edema Neck: normal alignment Cardiovascular: regular rhythm, systolic murmur Respiratory/Chest: normal breath sounds Abdomen: non tender, soft Extremities: trace edema Neurologic: motor weakness Дмитрий Rodriguez MD May 27, 2019 17:52
--- NOTE | 2019-05-28 12:27 | Discharge Summary ---
Discharge Summary Discharge Summary _ DATE OF ADMISSION: 05/25/2019 DATE OF DISCHARGE: 05/27/2019 DISCHARGED BY: Dr. Thomas REASON FOR ADMISSION: 58 years old male with past medical history of hypertension, diabetes, PVD with multiple toes amputation, atrial fibrillation, anemia, end-stage renal disease, on hemodialysis, history of zoster meningitis, status post prior herpes zoster several months ago on the left side of his chest , blindness secondary to diabetic retinopathy, bedridden status, was sent for hypoglycemia due to long-acting insulin. Upon evaluation laboratory workup revealed no leukocytosis, hemoglobin 9.4 , hematocrit 29.7. Blood sugar 66 . Stable electrolytes. BUN 54 , creatinine 8.2 , consistent with known history of end-stage renal disease . Stable LFT . Troponin 0.052.EKG revealed sinus rhythm ,. T wave inversion in V5 , V6, aVL and 1. Albumin 3.1 . Chest x-ray revealed possible small right pleural effusion and / or pleural thickening. Patient subsequently admitted for hypoglycemia. CONSULTANTS: vaccines solutions specialist Dr. Koenig gray tender Dr. Rodriguez HOSPITAL COURSE: Patient admitted to the hospital. Insulin was on hold . D50 was discontinued as his blood sugar stabilized at this time. Pain management was addressed. Dialysis provided as per gray tender recommendation with close monitoring of volumes,renal parameters and electrolytes. SNF medication were continued. Blood pressure was closely monitored, and remained stable. No further hypoglycemia. [facility] on sliding scale of insulin as needed. Lantus may be added later at a smaller dose after further evaluation. FINAL DIAGNOSES: Hypoglycemia -due to insulin access Chest pain - likely due to postherpetic neuralgia End-stage renal disease, requiring dialysis Missed dialysis Diabetes mellitus , insulin-dependent , with retinopathy, neuropathy, nephropathy and vasculopathy DISCHARGE MEDICATIONS: See Medication Reconciliation list. DISCHARGE INSTRUCTIONS: [facility] Follow up with medical doctor at the facility. Follow-up with dialysis as scheduled. I have been assigned to dictate discharge summary for this account. I was not involved in the patient's management. Eli Castañeda NP May 28, 2019 12:27
== END 2019-05-27 19:30 | DRG 638 ==
LOC: EDBD 14:05 → EMR 14:28 → 4E 19:21 → EDBEDREQ 22:09
PROC: 5A1D70Z Performance of Urinary Filtration, Intermittent, Less than 6 Hours Per Day (ICD-10-PCS; principal; 2019-05-25)
DX: E11.649 Type 2 diabetes mellitus with hypoglycemia without coma (principal); B02.29 Other postherpetic nervous system involvement; I13.2 Hypertensive heart and chronic kidney disease with heart failure and with stage 5 chronic kidney disease, or end stage renal disease; I50.30 Unspecified diastolic (congestive) heart failure; N18.6 End stage renal disease; E11.22 Type 2 diabetes mellitus with diabetic chronic kidney disease; Z99.2 Dependence on renal dialysis; E11.21 Type 2 diabetes mellitus with diabetic nephropathy; E11.319 Type 2 diabetes mellitus with unspecified diabetic retinopathy without macular edema; Z79.4 Long term (current) use of insulin; E11.40 Type 2 diabetes mellitus with diabetic neuropathy, unspecified; Z86.73 Personal history of transient ischemic attack (TIA), and cerebral infarction without residual deficits; R26.9 Unspecified abnormalities of gait and mobility; Z89.422 Acquired absence of other left toe(s); Z89.421 Acquired absence of other right toe(s); Z74.01 Bed confinement status; R62.7 Adult failure to thrive; Z68.24 Body mass index [BMI] 24.0-24.9, adult
CPT/HCPCS: 36415; 71045; 80048; 80053; 82962; 84484; 85025; 87081; 93005; 99285; J1815

== ENCOUNTER 2019-12-29 13:33 | Emergency (ER) | payer MEDICARE, MEDICAID ==
[~2019-12-29] VITALS: Ht 175.3 cm; Wt 86.2 kg
[~2019-12-29 13:33] MED LIST changes: +APRESOLINE100 MG ORAL; +LIDODERM700 M1 TOPIC; +NOVOLOG100 UNIT/4 SQ
--- NOTE | 2019-12-29 13:55 | Emergency Room Report ---
History of Present Illness General Source: Patient, EMS Present Illness HPI Patient is a 59-year-old male brought in by EMS after increased generalized weakness. Patient reportedly had increased difficulty with weakness as well as increased itchiness. He reports having missed dialysis for 1 week. He reports making urine. He denies any shortness of breath. 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 He reports having increased generalized itchiness and lethargy. 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 Hx Peripheral Neuropathy: Yes Review of Systems All Other Systems: negative except mentioned in HPI Physical Exam General Appearance: alert, mild distress, Chronically Ill ENT: hearing grossly normal Neck: limited range of motion Respiratory: lungs clear, normal breath sounds Cardiovascular #1: other - Slight diminished pulse to the right foot good cap refill Gastrointestinal: normal inspection, soft Musculoskeletal: decreased range of motion Neurologic: alert, waiter/waitress informal III-XII nml as tested, oriented, motor weakness - Lateral lower extremity weakness Skin: other Medical Decision Making Diagnostic Impression: Primary Impression: End-stage renal disease Additional Impressions: Refusal of care by patient Hyperkalemia ER Course Presented for increased generalized weakness and lethargy. Differential diagnosis include was not limited to pneumonia, uremia, postherpetic neuralgia among others. Because of complexity of patient's case laboratory tests and imaging studies were ordered. Patient was noted to have missed multiple dialysis. Appears to be awake and alert. Psychiatric consult was obtained with Dr. Lawson.Patient is competent appears to be coherently thinking and able to refuse dialysis. Patient was advised risk of and he appears to be well aware of this. Patient does not appear to be significantly hyperkalemic at this time. Patient was able to urinate. patient will be sent back to facility due to a refusal of treatment.Patient was to return if he changes his mind. Patient was sent back to his facility with [facility]. Labs Test 12/29/19 14:56 White Blood Count 3.0 K/UL (4.8-10.8) Red Blood Count 3.69 M/UL (4.70-6.10) Hemoglobin 11.6 G/DL (14.2-18.0) Hematocrit 39.3 % (42.0-52.0) Mean Corpuscular Volume 107 FL (80-99) Mean Corpuscular Hemoglobin 31.4 PG (27.0-31.0) Mean Corpuscular Hemoglobin Concent 29.5 G/DL (32.0-36.0) Red Cell Distribution Width 17.0 % (11.6-14.8) Platelet Count 187 K/UL (150-450) Mean Platelet Volume 5.9 FL (6.5-10.1) Neutrophils (%) (Auto) % (45.0-75.0) Lymphocytes (%) (Auto) % (20.0-45.0) Monocytes (%) (Auto) % (1.0-10.0) Eosinophils (%) (Auto) % (0.0-3.0) Basophils (%) (Auto) % (0.0-2.0) Differential Total Cells Counted 100 Neutrophils % (Manual) 96 % (45-75) Lymphocytes % (Manual) 4 % (20-45) Monocytes % (Manual) 0 % (1-10) Eosinophils % (Manual) 0 % (0-3) Basophils % (Manual) 0 % (0-2) Band Neutrophils 0 % (0-8) Platelet Estimate Adequate Platelet Morphology Normal Polychromasia 1+ Hypochromasia 1+ Anisocytosis 2+ Macrocytosis 2+ Sodium Level 146 MMOL/L (136-145) Potassium Level 5.3 MMOL/L (3.5-5.1) Chloride Level 105 MMOL/L (98-107) Carbon Dioxide Level 25 MMOL/L (21-32) Anion Gap 16 mmol/L (5-15) Blood Urea Nitrogen 131 mg/dL (7-18) Creatinine 17.9 MG/DL (0.55-1.30) Estimat Glomerular Filtration Rate 3.3 mL/min (>60) Glucose Level 72 MG/DL (74-106) Calcium Level 9.1 MG/DL (8.5-10.1) Total Bilirubin 0.3 MG/DL (0.2-1.0) Aspartate Amino Transf (AST/SGOT) 9 U/L (15-37) Alanine Aminotransferase (ALT/SGPT) 14 U/L (12-78) Alkaline Phosphatase 74 U/L (46-116) Troponin I 0.018 ng/mL (0.000-0.056) Total Protein 7.7 G/DL (6.4-8.2) Albumin 2.8 G/DL (3.4-5.0) Globulin 4.9 g/dL Albumin/Globulin Ratio 0.6 (1.0-2.7) EKG Diagnostic Results Rate: normal Rhythm: NSR ST Segments: other - Peak T waves normal sinus rhythm with a rate of 71 QTC 452 lateral T wave inversion Status: unchanged Disposition: SNF Condition: Serious Gera Joseph MD Dec 29, 2019 13:55
[2019-12-29 15:28] VITALS: BP 168/69
[2019-12-29 15:45] LABS: HEMATOCRIT 39.3 % (42.0-52.0); HEMOGLOBIN 11.6 G/DL (14.2-18.0); MEAN CORPUSCULAR VOLUME 107 FL (80-99); PLATELET COUNT 187 K/UL (150-450); RED BLOOD COUNT 3.69 M/UL (4.70-6.10)
[2019-12-29 15:48] LABS: ANION GAP 16 mmol/L (5-15); BLOOD UREA NITROGEN 131 mg/dL (7-18); CALCIUM 9.1 MG/DL (8.5-10.1); CARBON DIOXIDE 25 MMOL/L (21-32); CHLORIDE 105 MMOL/L (98-107); CREATININE 17.9 MG/DL (0.55-1.30); POTASSIUM 5.3 MMOL/L (3.5-5.1); SODIUM 146 MMOL/L (136-145)
[2019-12-29 15:53] LABS: ALANINE AMINOTRANSFERASE 14 U/L (12-78); ALBUMIN 2.8 G/DL (3.4-5.0); ALBUMIN/GLOBULIN RATIO 0.6 (1.0-2.7); ALKALINE PHOSPHATASE 74 U/L (46-116); ASPARTATE AMINO TRANSFERASE 9 U/L (15-37); BILIRUBIN,TOTAL 0.3 MG/DL (0.2-1.0)
[2019-12-29 19:15] VITALS: BP 162/70
[2019-12-29 20:30] VITALS: BP 159/77
[2019-12-29] MEDS ORDERED: Furosemide 40mg tab ONE (20:55)
[2019-12-29] MEDS ORDERED: Furosemide 40mg tab ORAL ONE (21:00)
[2019-12-29 21:50] VITALS: BP 145/70
--- NOTE | 2019-12-29 22:00 | Consultation ---
DATE OF CONSULTATION: 12/29/2019 CONSULTING PHYSICIAN: Sharon Lawson M.D. HISTORY OF PRESENT ILLNESS: This is a 59-year-old male with a history of multiple medical issues including renal failure as well as depression, anxiety, agitation, who was admitted to the hospital for medical stabilization. The patient has been refusing care including hemodialysis. The patient is blind as well. The patient is presenting with depressed mood, anhedonia, worthlessness, and he is refusing dialysis, specifically since he is complaining of itchiness. The patient stated that Benadryl nor Atarax alleviated the itch. He also stated that he has a poor prognosis and poor quality of life and he does not want to get more treatment including dialysis. The patient was open to hospice care. The patient does not want to continue taking. The patient has capacity to make decision. PAST PSYCHIATRIC HISTORY: Depression. He is on no psychotropic medications. PAST MEDICAL HISTORY: Hypertension, renal failure, diabetes. He has lost several pills. ALLERGIES: No known drug allergies. SUBSTANCE ABUSE HISTORY: Denies any illicit drug use or alcohol. MENTAL STATUS EXAMINATION: The patient is alert, oriented times self, place, situation, and date. Mood is depressed. Affect constricted. Congruent with mood. Thought process, linear and goal oriented. Thought content, no suicidal or homicidal ideation. Cognition is intact. Insight and judgment fair. ASSESSMENT: AXIS I: Major depressive disorder. AXIS II: Deferred. AXIS III: Renal failure, on hemodialysis. AXIS IV: Low. AXIS V: 50. PLAN: 1. Start the patient on Lexapro. 2. The patient has capacity to make decisions. Sharon Lawson M.D. DR: LISA JOB#: [id number] CC:
== END 2019-12-29 21:50 ==
LOC: EDUNIT# 13:33 → EDBD 13:33 → EMR 13:50 → EDBEDREQ 17:02 → EMR 21:50
DX: I12.0 Hypertensive chronic kidney disease with stage 5 chronic kidney disease or end stage renal disease (principal); E10.22 Type 1 diabetes mellitus with diabetic chronic kidney disease; N18.6 End stage renal disease; H54.8 Legal blindness, as defined in USA; E87.5 Hyperkalemia; Z86.61 Personal history of infections of the central nervous system; E11.42 Type 2 diabetes mellitus with diabetic polyneuropathy
CPT/HCPCS: 36415; 80053; 84484; 85007; 85025; 86850; 86900; 86901; 93005; 99284